=== PATIENT | female | born 1980 | race Caucasian/White ===

== ENCOUNTER 2019-03-10 19:28 | Emergency (ER) | payer MEDICAID ==
[~2019-03-10] VITALS: Ht 165.1 cm; Wt 81.6 kg
[2019-03-10 20:05] VITALS: Ht 165.1 cm; Wt 81.6 kg
[2019-03-10 21:54] VITALS: BP 130/92
== END 2019-03-10 21:54 | disposition home or self-care (01) ==
LOC: ED 19:28
DX: R10.13 Epigastric pain (principal)